=== PATIENT | male | born 1960 | race Caucasian/White ===

== ENCOUNTER 2016-11-16 00:41 | Emergency (ER) | payer OTHER ==
[~2016-11-16] VITALS: Ht 172.7 cm; Wt 95.3 kg
--- NOTE | 2016-11-16 01:04 | ED NECK/BACK PAIN COMPLAINT ---
History of Present Illness General Chief Complaint: Neck/Upper Back Pain/Injury Stated Complaint: LEFT SIDE NECK PAIN X COUPLE WEEKS PER PT Source: patient, family Exam Limitations: no limitations Vital Signs & Intake/Output Vital Signs & Intake/Output Vital Signs Date Time Temp Pulse Resp B/P Pulse O2 O2 Flow FiO2 Ox Delivery Rate 11/16 0311 98.2 72 18 126/85 98 Room Air 11/16 0105 Room Air 11/16 0052 97.4 74 74 134/96 97 Room Air Allergies Coded Allergies: NO KNOWN ALLERGIES (08/07/13) NKA PER POST OP ORDER SHEET OF 08/07/13 - [facility] Reconcile Medications Methylprednisolone. (Medrol) 4 MG TAB.DS.PK 1 DP PO AD INFLAMMATION 6 on day 1 then reduce by one tablet daily until gone Triage Note: 56yo MALE TO TRIAGE W/CO PAIN TO L SIDE OF HIS HEAD THAT RADIATES DOWN NECK INTO L SHOULDER. NO RELIEF AFTER ACCUPUNCTURE OR ALEVE. Triage Nurses Notes Reviewed? yes Onset: Abrupt Duration: week(s): (2) Timing: multiple episodes today Quality/Severity: severe, SPASM Location: C-spine Radiation: LEFT SHOULDER, LEFT EAR Method of Injury: PAIN SINCE DEEP TISSUE MASSAGE Modifying Factors: movement HPI: 56-year-old male with history of previous cervical fusion presents to the ER with chief complaint of severe left-sided neck pain for the past 2 weeks after getting a deep tissue massage. He states that since that time he has severe pain and muscle spasm in the left side of his neck. Pain is sharp and radiates to his left ear and occasionally to his left shoulder. No chest pain or shortness of breath. No fever or chills. He feels during the massage she may have done something to the previous cervical fusion. Past History Travel History Traveled to [place] past 21 day No Medical History Any Pertinent Medical History? see below for history Cardiovascular: hypertension Musculoskeletal: R KNEE REPLACEMENT History of MRSA: No History of VRE: No History of CDIFF: No Influenza Vaccine: 05/13/13 Surgical History Surgical History: CERVICAL FUSION Psychosocial History Who do you live with Spouse What is your primary language Tajik Tobacco Use: Current Daily Use Daily Tobacco Use Amount/Type: => 5 Cigarettes daily Family History Hx Contributory? No Review of Systems Review of Systems Constitutional: Denies: chills, fever. Eyes: Denies: blurred vision. Ears, Nose, Throat, Mouth: Reports: no symptoms. Respiratory: Denies: cough. Cardiovascular: Reports: no symptoms. Gastrointestinal/Abdominal: Reports: no symptoms. Musculoskeletal: Reports: muscle pain, muscle stiffness, neck pain. Skin: Reports: no symptoms. Neurological/Psychological: Denies: numbness, paresthesia, weakness. All Other Systems: Reviewed and Negative Physical Exam Physical Exam General Appearance: well developed/nourished, alert, awake, moderate distress Head: atraumatic Eyes: Bilateral: PERRL, EOMI. 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 2+ BILATERAL RADIAL PULSES. nO NEUROLOGIC DEFICIT. Skin: intact, normal color, warm/dry Progress Differential Diagnosis: C spine injury, herniated disc, myofascial strain, spinal cord inj, CERVICAL RADICULOPATHY Plan of Care: Current Medications Sig/Pavithra Start time Last Medication Dose Stop Time Status Admin Diazepam 5 MG ONCE ONE 11/16 214 AC (Valium) 11/17 215 Hydromorphone HCl 1 MG ONCE ONE 11/16 214 AC (Dilaudid) 11/17 215 2 AM NO RELIEF WITH IM/PO MEDS. CT SCAN PENDING. IV VALIUM, IV DILAUDID ORDERED. Patient reports significant relief after IV medications. I asked him to follow- up with Dr. Bui in the office who did his cervical fusion. Medrol Dosepak sent to the pharmacy. (VINI ZUÑIGA,TYLER) Diagnostic Imaging: Viewed by Me: CT Scan. Discussed w/RAD: CT Scan. Radiology Impression: PATIENT: ELBA BARCLAY PRESENT AGE: 56 PATIENT ACCOUNT NO: [id number] : 60 LOCATION: [facility] ORDERING PHYSICIAN: TYLER MARTINI MD SERVICE DATE: 11/16/16 EXAM TYPE: CAT - CT CERV SPINE WO IV CONTRAST EXAMINATION: CT CERVICAL SPINE WITHOUT CONTRAST CLINICAL INFORMATION: Severe left-sided neck pain. COMPARISON: None TECHNIQUE: Axial images obtained through the cervical spine. Coronal and sagittal reformatted images are performed at CT scanner DLP: 430.15 mGy-cm FINDINGS: Status post fusion with orthopedic plate and screw C5-C6. The vertebrae have normal height and normal alignment. There is no fracture. No prevertebral soft tissue swelling. Multilevel degenerative facet joint arthrosis greater on the left side than the right side from C2-C3 to C6-C7 most significant at the upper cervical spine. There is spur at the anterior endplate C4-C5 vertebrae and C6-C7 vertebrae. Bleb at right lung apex. Normal variant of azygos lobe at the right lung. IMPRESSION: 1. No acute abnormality. 2. Status post fusion C5-C6. 3. Multilevel degenerative change of cervical spine. DICTATED BY: ANJU STARKS MD DATE/TIME DICTATED:11/16/16149 INSURANCE ACCOUNT MANAGER:MILTON DATE/TIME TRANSCRIBED:11/16/16149 CONFIDENTIAL, DO NOT COPY WITHOUT APPROPRIATE AUTHORIZATION. <Electronically signed in Other Vendor System> SIGNED BY: ANJU STARKS MD 11/16/16 0204 Departure Departure Time of Disposition: 309 Disposition: HOME OR SELF CARE Condition: Stable Clinical Impression Primary Impression: Cervical radiculopathy Referrals: MANDY ROJAS,SAUL HOPPER (PCP/Family) Additional Instructions: TAKE THE MEDROL DOSE PACK DIRECTED AND FOLLOW UP WITH DR BACK IN THE OFFICE. CONTINUE YOUR REGULAR PAIN MEDICATIONS. RETURN FOR ANY WEAKNESS, NUMBNESS, WORSEING PAIN. Departure Forms: Customer Survey General Discharge Information Prescriptions: Current Visit Scripts Methylprednisolone. (Medrol) 1 DP PO AD #1 DP 6 on day 1 then reduce by one tablet daily until gone Critical Care Note Critical Care Note Critical Care Time: 30-74 min
--- NOTE | 2016-11-16 02:04 | CT SCAN REPORT ---
EXAMINATION: CT CERVICAL SPINE WITHOUT CONTRAST CLINICAL INFORMATION: Severe left-sided neck pain. COMPARISON: None TECHNIQUE: Axial images obtained through the cervical spine. Coronal and sagittal reformatted images are performed at CT scanner DLP: 430.15 mGy-cm FINDINGS: Status post fusion with orthopedic plate and screw C5-C6. The vertebrae have normal height and normal alignment. There is no fracture. No prevertebral soft tissue swelling. Multilevel degenerative facet joint arthrosis greater on the left side than the right side from C2-C3 to C6-C7 most significant at the upper cervical spine. There is spur at the anterior endplate C4-C5 vertebrae and C6-C7 vertebrae. Bleb at right lung apex. Normal variant of azygos lobe at the right lung. IMPRESSION: 1. No acute abnormality. 2. Status post fusion C5-C6. 3. Multilevel degenerative change of cervical spine.
[2016-11-16 03:11] VITALS: BP 126/85
[2016-11-16] MEDS ORDERED: MEDROL4 M2 PO (03:11)
== END 2016-11-16 03:17 ==
LOC: ERH 00:41
DX: M54.12 Radiculopathy, cervical region (principal)
CPT/HCPCS: 96372; 96374; J3360